=== PATIENT | male | born 1975 ===

== ENCOUNTER 2023-04-10 18:34 | Emergency (ER) | payer BC, SELFPAY ==
[2023-04-10 18:45] VITALS: BP 167/116; PULSE 77; RESP 18; TEMP 36.1; O2SAT 100
--- NOTE | 2023-04-10 18:50 | ED.WOUNDLAC ---
HPI - Wound/Laceration General Chief Complaint: Wound/Laceration Stated Complaint: left thumb laceration Time Seen by Provider: 04/10/23 18:45 Focused HPI: This is a 47-year-old male that presents to the emergency department for laceration to the left 1st finger. Sustained just prior to arrival. Reports he is not up-to-date on tetanus. Accidentally cut his finger trying to cut a plastic bite. Denies decreased range of motion or numbness. GENERAL: Well-appearing, well-nourished, and in no acute distress. HEAD: Normocephalic, atraumatic. CHEST: Clear to auscultation. ?No respiratory distress. HEART: Regular rate and rhythm.? EXTREMITIES: Left 1st finger distal phalanx with 1.5 cm linear laceration in the subcutaneous tissue. Normal ROM, normal sensation NEURO: ?Alert and oriented x3. Patient screened in triage and initial orders placed.? ?Additional care and disposition to be based upon?diagnostic testing and treatment. Related Data Home Medications Medication Instructions Recorded Confirmed ibuprofen 800 mg tablet 800 mg PO TID 02/26/19 02/26/19 Allergies Allergy/AdvReac Type Severity Reaction Status Date / Time bee venom protein (honey bee) Allergy Unknown Verified 03/09/16 11:12 codeine Allergy Unknown Verified 03/09/16 11:12 Review of Systems Review of Systems: CONSTITUTIONAL: Denies fever SKIN: Reports laceration MUSCULOSKELETAL: Denies joint pain, or myalgia. NEUROLOGIC: Denies numbness All systems reviewed & are unremarkable except as noted in HPI and below PMFSH Past Medical History Medical History (Updated 04/10/23 @ 19:46 by Sudha Gfafney PA-C) Chronic back pain Hemorrhoids Surgical History Surgical History (Updated 02/26/19 @ 06:48 by Rosangela Case CMA) H/O laminectomy Right L4 discectomy H/O tooth extraction Family History Family History (Updated 02/26/19 @ 06:49 by Rosangela Case CMA) Mother Hypertension Family history of lung cancer Family history of chronic obstructive pulmonary disease Diverticulitis Father Family history of cardiovascular disease Heart disease Social History Social History (Updated 02/26/19 @ 09:35 by Rosangela Case CMA) Smoking status: Former smoker Smoking end date: 04/01/19 Alcohol intake: current Alcohol use details: Pt drinks occasionally. Exam Narrative: GENERAL: Well-appearing, well-nourished, and in no acute distress. HEAD: Normocephalic, atraumatic. EYES: EOMI. CHEST: No respiratory distress. HEART: Regular rate EXTREMITIES: Normal range of motion. No edema or deformity. 1.5cm linear laceration into subcutaneous tissue to the left 1st finger distal phalanx SKIN: Warm, dry, no rash. NEURO: No focal deficits. Alert and oriented x3. PSYCH: Normal mood and affect Course Course Emergency Course: Patient agrees with plan of care Vital Signs Vital signs: Vital Signs Temperature 97.0 F L 04/10/23 18:45 Pulse Rate 77 04/10/23 18:45 Respiratory Rate 18 04/10/23 18:45 Blood Pressure 167/116 H 04/10/23 18:45 Pulse Oximetry 100 04/10/23 18:45 Oxygen Delivery Room Air 04/10/23 18:45 Temperature 97.0 F L 04/10/23 18:45 Pulse Rate 77 04/10/23 18:45 Respiratory Rate 18 04/10/23 18:45 Blood Pressure 167/116 H 04/10/23 18:45 Pulse Oximetry 100 04/10/23 18:45 Oxygen Delivery Room Air 04/10/23 18:45 Procedures Laceration Laceration 1: Date: 04/10/23 Time: 19:30 Site: upper extremity Side (If applicable): left Size (cm): 1.5 Description: linear Depth: simple, single layer Local Anesthetic: lidocaine 1% Amount of anesthesia used (mL): 3 Pre-repair: irrigated ====== Skin Level ====== Skin layer closed with: nylon Size (cm): 4-0 Number of sutures: 2 Technique: simple, interrupted ====== Subcutaneous Layer ====== ====== Muscle Layer ====== ======
[2023-04-10 19:30] VITALS: BP 160/105; PULSE 60; RESP 16; O2SAT 99
[2023-04-10] MEDS: TETANUS,DIPHTHERIA,AC PERTUSSIS ADULT (0.5 ML) BOOSTRIX IM (19:52)
[2023-04-10] MEDS: LIDOCAINE HCL 1% LOCAL INJ 10 ML VIAL INFILTRATE (19:53)
[2023-04-10 20:00] VITALS: BP 157/86; PULSE 54; RESP 16; O2SAT 98
== END 2023-04-10 20:04 | disposition home or self-care (01) ==
PROVIDERS: Emergency Provider Physician Assistant; PCP Internal Medicine
DX: S61.012A Laceration without foreign body of left thumb without damage to nail, initial encounter (principal); Z23 Encounter for immunization; Z87.891 Personal history of nicotine dependence; W26.0XXA Contact with knife, initial encounter
CPT/HCPCS: 12001; 90471; 90715; 99282

== ENCOUNTER 2023-04-22 19:01 | Emergency (ER) | payer BC, SELFPAY ==
--- NOTE | ~2023-04-22 | XR_ITS ---
EXAMINATION: XR chest 1V portable Exam Date/Time: 04/22/2023 20:43 CDT HISTORY: cough, weakness, URI x 1 week Comparison: None. RESULT: Lines, tubes, and devices: None. Lungs and pleura: Clear. Cardiomediastinal silhouette: Normal. Other: No acute osseous or upper abdominal finding. IMPRESSION: No acute cardiopulmonary process. Reviewed, dictated and finalized at location K.
[2023-04-22 19:21] VITALS: BP 145/104; PULSE 88; RESP 14; TEMP 36.6; O2SAT 100
[2023-04-22 20:15] VITALS: BP 147/109; PULSE 92; RESP 15; TEMP 36.6; O2SAT 100
[2023-04-22 20:22] LABS: Basophils Percent Auto 0.3 % (0.2-1.2); Hematocrit 48.3 % (42.0-52.0); Immature Granulocyte Absolute 0.01 K/mm3 (0.00-0.031); Immature Granulocyte Percent A 0.3 % (0-0.5); Lymphocytes Absolute Auto 1.56 K/mm3 (0.9-3.2); Lymphocytes Percent Auto 40.1 % (18.3-44.2); Mean Corpuscular HGB Conc 35.2 g/dl (32-36); Mean Corpuscular Hemoglobin 28.7 pg (26-34); Mean Corpuscular Volume 81.5 fl (80-100); Monocytes Absolute Auto 0.5 K/mm3 (0.1-0.6); Monocytes Percent Auto 11.8 % (2.6-8.5); Neutrophils Absolute Auto 1.9 K/mm3 (1.3-6.7); Neutrophils Percent Auto 47.5 % (45.5-73.1); Platelet Count Result 164 k/mm3 (150-375); Red Blood Count 5.93 M/mm3 (4.6-6.20); Red Cell Distribution Width 12.9 % (11.5-14.5); White Blood Count 3.9 K/mm3 (4.5-10.0)
--- NOTE | 2023-04-22 20:34 | ED.GENADULT ---
HPI - General Adult General Chief complaint: Nausea/Vomiting/Diarrhea Stated complaint: URI symptoms, coughing, N/V Time Seen by Provider: 04/22/23 19:57 Source: patient Mode of arrival: ambulatory Limitations: no limitations History of Present Illness HPI narrative: This is a 47-year-old male who presents to the ED with chief complaint of URI symptoms as well as this N/V/D x6 days. Patient reports that he has had a lot of cough, congestion and lower body aches. Reports this progressed to nausea with couple episodes vomiting. He has had multiple episodes of diarrhea every day. Reports that he has history of hemorrhoids and that the diarrhea has aggravated the hemorrhoids. Reports bright red blood bleeding but minimal pain. States his spouse was sick with similar symptoms last week. Denies abdominal pain, fevers, chills, urinary symptoms, chest pain, shortness of breath. Related Data Home Medications Medication Instructions Recorded Confirmed ibuprofen 800 mg tablet 800 mg PO TID 02/26/19 02/26/19 Allergies Allergy/AdvReac Type Severity Reaction Status Date / Time bee venom protein (honey bee) Allergy Unknown Verified 03/09/16 11:12 codeine Allergy Unknown Verified 03/09/16 11:12 Review of Systems Review of Systems: All systems as dictated in [facility] Past Medical History Medical History (Updated 04/23/23 @ 00:01 by Ella Boyd) Chronic back pain Hemorrhoids Surgical History Surgical History (Updated 02/26/19 @ 06:48 by Rosangela Case CMA) H/O laminectomy Right L4 discectomy H/O tooth extraction Family History Family History (Updated 02/26/19 @ 06:49 by Rosangela Case CMA) Mother Hypertension Family history of lung cancer Family history of chronic obstructive pulmonary disease Diverticulitis Father Family history of cardiovascular disease Heart disease Social History Social History (Updated 02/26/19 @ 09:35 by Rosangela Case CMA) Smoking status: Former smoker Smoking end date: 05/12/18 Alcohol intake: current Alcohol use details: Pt drinks occasionally. Exam Narrative: GENERAL: Well-appearing, well-nourished, and in no acute distress. HEAD: Normocephalic, atraumatic. EYES: PERRLA and EOMI. ENT: Nares clear, no rhinorrhea or epistaxis. Mucous membranes moist. Oropharynx without tonsillar hypertrophy exudate or other lesions. NECK: Supple. No adenopathy or masses. CHEST: No respiratory distress. Clear to auscultation. No wheezes rales or rhonchi HEART: Regular rate and rhythm. No murmur heard. Normal peripheral pulses. ABDOMEN: Soft, nontender, nondistended, normal active bowel sounds. MSK: Normal range of motion. No edema. SKIN: Warm, dry, no rash. NEURO: Alert and oriented x3. No focal deficits. PSYCH: Normal mood and affect. Course Vital Signs Vital signs: Vital Signs Temperature 97.8 F 04/22/23 19:21 Pulse Rate 88 04/22/23 19:21 Respiratory Rate 14 04/22/23 19:21 Blood Pressure 145/104 H 04/22/23 19:21 Pulse Oximetry 100 04/22/23 19:21 Oxygen Delivery Room Air 04/22/23 19:21 Temperature 97.8 F 04/22/23 20:15 Pulse Rate 92 04/22/23 20:15 Respiratory Rate 15 04/22/23 20:15 Blood Pressure 147/109 H 04/22/23 20:15 Pulse Oximetry 100 04/22/23 20:15 Oxygen Delivery Room Air 04/22/23 19:21 Medical Decision Making MDM Narrative Medical decision making narrative: This is a 47-year-old male who presents to the ED for chief complaint of URI symptoms along with vomiting and diarrhea. Secondary complaints of irritated hemorrhoids with the diarrhea. Vitals are normal. Exam is benign. No acute abdomen on exam. Lab work shows leukopenia on the CBC but a normal H&H. CMP largely unremarkable. Urinalysis consistent with dehydration but no infection. Viral swabs are positive for flu B. exam and presentation are consistent with viral syndrome of influenza. Chest x-ray is negative for any acu
[2023-04-22 20:48] LABS: Alanine Aminotransferase 65 U/L (6-50); Albumin Level 4.5 g/dL (3.5-5.1); Alkaline Phosphatase 92 U/L (38-126); Anion Gap 11 mmol/L (8-16); Aspartate Amino Transferase 113 U/L (17-59); Blood Urea Nitrogen 11 mg/dL (9-20); Carbon Dioxide 25 mmol/L (22-30); Chloride 102 mmol/L (98-107); Estimated CRCL calculation 110 ml/min; Estimated Glomerular Filt Rate > 60; Glucose 122 mg/dL (65-110); Lipase 173 U/L (23-300); Potassium 3.9 mmol/L (3.4-5.0); Sodium 138 mmol/L (137-145)
[2023-04-22] MEDS: KETOROLAC 15 MG/ML VIAL (*BKC) IV PUSH (21:00)
[2023-04-22] MEDS: ONDANSETRON INJ 4 MG/2 ML VIAL IV PUSH (21:00)
[2023-04-22] MEDS: SODIUM CHLORIDE 0.9% IV 1,000 ML 999 ML IV CONT (21:02)
[2023-04-22 21:15] LABS: Influenza A QL RT-PCR Negative (Negative); Influenza B QL RT-PCR Positive (Negative); RSV RNA, RT-PCR Negative (Negative); SARS-CoV-2 RNA PCR Negative (Negative)
[2023-04-22 21:50] LABS: Add Urine Microscopic? YES; Appearance Urine Cloudy (Clear); Bacteria Urine None Seen /hpf; Bilirubin Urine 2+ (Negative); Blood Urine 2+ (Negative); Color Urine Dark Yellow (Yellow); Glucose Urine UA Negative (Negative); Ketones Urine 4+ mg/dL (Negative); Leukocyte Esterase Ur Negative LEU/UL (Negative); Need Manual Microscopic Reviewed; Nitrate Urine Negative (Negative); Non Pathogenic Casts 0-2; Protein Urine 2+ mg/dL (Negative); Specific Grav Ur 1.028 (1.001-1.035); Squamous Epithelial Cell Urine Occasional /hpf (Few); WBC Urine 0-5 /hpf
== END 2023-04-22 22:16 | disposition home or self-care (01) ==
PROVIDERS: Emergency Medicine; Emergency Provider Physician Assistant; PCP Internal Medicine
DX: J10.1 Influenza due to other identified influenza virus with other respiratory manifestations (principal); Z20.822 Contact with and (suspected) exposure to COVID-19; Z87.891 Personal history of nicotine dependence
CPT/HCPCS: 36415; 71045; 80053; 81001; 83690; 85025; 87637; 96361; 96374; 96375; 99284; J1885; J2405; J7030